=== PATIENT | male | born 1945 | race Caucasian/White ===

== ENCOUNTER 2025-06-15 02:51 | Observation (INO) | payer OTHER ==
[~2025-06-15] VITALS: Ht 175.3 cm; Wt 86.6 kg
[2025-06-15 03:13] LABS: BASOPHILS ABSOLUTE AUTO 0.04 K/mm3 (0.00-0.23); BASOPHILS PERCENT AUTO 0 % (0-2); EOSINOPHILS ABSOLUTE AUTO 0.07 K/mm3 (0.00-0.68); EOSINOPHILS PERCENT AUTO 1 % (0-6); Hematocrit 38.3 % (37.0-53.0); Hemoglobin 13.1 g/dL (13.5-17.5); IMMATURE GRAN ABSOLUTE AUTO 0.04 K/mm3 (0.00-0.10); IMMATURE GRAN PERCENT AUTO 0 % (0-1); LYMPHOCYTES ABSOLUTE AUTO 0.80 K/mm3 (0.84-5.20); LYMPHOCYTES PERCENT AUTO 8 % (21-46); MONOCYTES ABSOLUTE AUTO 1.02 K/mm3 (0.16-1.47); MONOCYTES PERCENT AUTO 10 % (4-13); Mean Corpuscular HGB Conc 34.2 g/dL (31.5-36.5); Mean Corpuscular Volume 92 fL (80-100); NEUTROPHILS ABSOLUTE AUTO 8.44 K/mm3 (1.96-9.15); NEUTROPHILS PERCENT AUTO 81 % (41-73); NRBC ABSOLUTE 0.00 K/mm3 (0.00-0.02); NRBC Auto 0.0 /100 WBC (0.0-0.2); Platelet Count 108 K/mm3 (150-400); RDW Coefficient Variation 14.8 % (11.7-14.2); RDW Standard Deviation 49.8 fL (35.1-46.3)
[2025-06-15 03:31] LABS: Alanine Aminotransfer (ALT/SGP 24.0 U/L (12-78); Albumin, Blood 2.6 g/dL (3.4-5.0); Albumin/Globulin Ratio 0.5 (0.8-1.8); Anion Gap 15.0 mmol/L (3-11); Aspartate Aminotrans (AST/SGOT 27.0 U/L (12-37); Bilirubin, Total 1.0 mg/dL (0.1-1.0); Blood Urea Nitrogen 20.0 mg/dL (8-24); CO2, Blood 21.0 mmol/L (21-32); Calcium, Blood 8.6 mg/dL (8.5-10.1); Chloride, Blood 100.0 mmol/L (98-108); Creatinine, Blood 1.52 mg/dL (0.60-1.20); Globulin, Blood 5.5 g/dL (2.2-4.0); Glucose, Blood 157.0 mg/dL (70-99); Potassium, Blood 3.6 mmol/L (3.5-5.5); Sodium, Blood 132.0 mmol/L (136-145); Total Protein, Blood 8.1 g/dL (6.4-8.2)
[2025-06-15] MEDS ORDERED: NS 1,000 ML IV SCH (04:00)
[2025-06-15] MEDS ORDERED: Enoxaparin 40 MG/0.4 ML SYR SC SCH (08:00)
[2025-06-15 09:35] VITALS: BP 148/82
[2025-06-15] MEDS ORDERED: OZEMPIC1 MG/0.72 SC (10:33)
[2025-06-15] MEDS ORDERED: LOSARTAN-HCTZ1 EACH PO (10:35)
[2025-06-15] MEDS ORDERED: CARV6.25 PO (10:35)
[2025-06-15] MEDS ORDERED: METF500C PO (10:36)
[2025-06-15] MEDS ORDERED: ROSUVASTATIN CA20 MG PO (10:36)
[2025-06-15] MEDS ORDERED: FISH OIL 1,0001 EA10 PO (10:38)
[2025-06-15] MEDS ORDERED: Aspir 8181 MG PO (10:38)
[2025-06-15] MEDS ORDERED: JARDIANCE25 MG PO (10:38)
[2025-06-15] MEDS ORDERED: VITAMIN D325 MC3 PO (10:39)
[2025-06-15] MEDS ORDERED: MULTIPLE VITAM1 EACH PO (10:40)
[2025-06-15] MEDS ORDERED: ASCO500 PO (10:41)
[2025-06-15] MEDS ORDERED: B-121000 MC7 PO (10:45)
[2025-06-15 12:24] VITALS: BP 124/74
[2025-06-15] MEDS ORDERED: Aminophylline 250MG / 10ML 10 ML Vial ONE (13:28)
[2025-06-15 17:18] VITALS: BP 122/65
[2025-06-15 19:15] VITALS: BP 116/62
--- NOTE | 2025-06-15 19:44 | NUR ---
ASSUMPTION OF CARE PT A&O X4, CALM, COOPERATIVE TO CARE. HR IN THE 90'S, SR. HE DENIES ANY CP/PRESSURE, NUMB/TINGLING, SBP STABLE. SPO2 >92% ON RA, HE DENIES ANY SOB. PT IND IN ROOM TO THE BATHROOM. PT HAD FIRST PORTION OF STRESS TEST TODAY 06/15, WILL BE NPO AT MIDNIGHT FOR SECOND PORTION. PT DENIES ANY QUESTIONS OR CONCERNS AT THIS TIME. CALL LIGHT IN REACH.
[2025-06-15] MEDS ORDERED: Insulin Human Lispro 100 Units/ML 3ML Syringe SC SCH (21:00)
[2025-06-15 23:51] VITALS: BP 115/72
[2025-06-16 03:12] VITALS: BP 124/71
--- NOTE | 2025-06-16 05:04 | NUR ---
SHIFT SUMMARY PT A&O X4, CALM, COOPERATIVE TO CARE. HR IN THE 90'S, SINUS RHYTHM. HE DENIES ANY CP/PRESSURE T/O NIGHT. SBP STABLE. SPO2 >92% ON RA, HE DENIES ANY SOB. PT HAS NOT HAD CAFFEINE OR CHOCOLATE SINCE 1899 AND HAS BEEN NPO SINCE MIDNIGHT FOR SECOND PORTION OF STRESS TEST TODAY 06/16. PT AMBULATED AROUND UNIT EARLY RHIS AM, TOLERATED WELL. NO ACUTE CHANGES T/O NIGHT. PT DENIES ANY QUESTIONS OR CONCERNS. CALL LIGHT IN REACH. WILL MONITOR PT AND REPORT TO ONCOMING RN.
[2025-06-16 06:27] LABS: BASOPHILS ABSOLUTE AUTO 0.03 K/mm3 (0.00-0.23); BASOPHILS PERCENT AUTO 0 % (0-2); EOSINOPHILS ABSOLUTE AUTO 0.15 K/mm3 (0.00-0.68); EOSINOPHILS PERCENT AUTO 2 % (0-6); Hematocrit 34.3 % (37.0-53.0); Hemoglobin 11.7 g/dL (13.5-17.5); IMMATURE GRAN ABSOLUTE AUTO 0.03 K/mm3 (0.00-0.10); IMMATURE GRAN PERCENT AUTO 0 % (0-1); LYMPHOCYTES ABSOLUTE AUTO 1.28 K/mm3 (0.84-5.20); LYMPHOCYTES PERCENT AUTO 15 % (21-46); MONOCYTES ABSOLUTE AUTO 1.06 K/mm3 (0.16-1.47); MONOCYTES PERCENT AUTO 12 % (4-13); Mean Corpuscular HGB Conc 34.1 g/dL (31.5-36.5); Mean Corpuscular Volume 94 fL (80-100); NEUTROPHILS ABSOLUTE AUTO 6.07 K/mm3 (1.96-9.15); NEUTROPHILS PERCENT AUTO 71 % (41-73); NRBC ABSOLUTE 0.00 K/mm3 (0.00-0.02); NRBC Auto 0.0 /100 WBC (0.0-0.2); Platelet Count 104 K/mm3 (150-400); RDW Coefficient Variation 14.9 % (11.7-14.2); RDW Standard Deviation 52.2 fL (35.1-46.3)
[2025-06-16 06:50] LABS: Alanine Aminotransfer (ALT/SGP 19.0 U/L (12-78); Albumin, Blood 2.4 g/dL (3.4-5.0); Albumin/Globulin Ratio 0.5 (0.8-1.8); Anion Gap 7.0 mmol/L (3-11); Aspartate Aminotrans (AST/SGOT 20.0 U/L (12-37); Bilirubin, Total 1.0 mg/dL (0.1-1.0); Blood Urea Nitrogen 24.0 mg/dL (8-24); CO2, Blood 27.0 mmol/L (21-32); Calcium, Blood 8.3 mg/dL (8.5-10.1); Chloride, Blood 99.0 mmol/L (98-108); Creatinine, Blood 1.65 mg/dL (0.60-1.20); Globulin, Blood 4.6 g/dL (2.2-4.0); Glucose, Blood 141.0 mg/dL (70-99); Potassium, Blood 2.9 mmol/L (3.5-5.5); Sodium, Blood 130.0 mmol/L (136-145); Total Protein, Blood 7.0 g/dL (6.4-8.2)
[2025-06-16] MEDS ORDERED: Potassium Chl 20MEQ/Water100ML 100 ML IV SCH (07:05)
[2025-06-16 07:19] LABS: Prostate Specific Antigen 1.960 ng/mL (0.000-4.000)
[2025-06-16 07:30] LABS: Carcinoembryonic Antigen 1.3 ng/mL (0.0-3.0)
[2025-06-16 07:31] VITALS: BP 141/70
[2025-06-16] MEDS ORDERED: Cholecalciferol 1000 Unit Tablet (=25MCG) PO SCH (09:00)
[2025-06-16] MEDS ORDERED: Colchicine 0.6 MG TAB PO SCH (09:00)
[2025-06-16 11:37] VITALS: BP 100/63
[2025-06-16] MEDS ORDERED: Insulin Human Lispro 100 Units/ML 3ML Syringe SC SCH ×2 (12:00)
[2025-06-16 12:57] LABS: Anion Gap 9.0 mmol/L (3-11); Blood Urea Nitrogen 28.0 mg/dL (8-24); CO2, Blood 27.0 mmol/L (21-32); Calcium, Blood 8.4 mg/dL (8.5-10.1); Chloride, Blood 99.0 mmol/L (98-108); Creatinine, Blood 1.67 mg/dL (0.60-1.20); Glucose, Blood 199.0 mg/dL (70-99); Potassium, Blood 3.4 mmol/L (3.5-5.5); Sodium, Blood 132.0 mmol/L (136-145)
[2025-06-16] MEDS ORDERED: NS 1,000 ML BAG IV ONE (13:20)
[2025-06-16] MEDS ORDERED: NS 1,000 ML IV SCH (13:35)
[2025-06-16 14:32] LABS: Influenza A/2009-H1 Not Detected (NOT DETECT); SARS-Cov-2 (COVID-19), BioFire Not Detected (NOT DETECT)
[2025-06-16] MEDS ORDERED: COLCHICINE0.6 MG PO (15:37)
[2025-06-16] MEDS ORDERED: SPIR25 PO (15:37)
[2025-06-16 16:02] VITALS: BP 111/63
--- NOTE | 2025-06-16 16:52 | NUR ---
PT IS A&Ox4 AND ABLE TO MAKE NEEDS KNOWN. HE IS ON RA W/O2 SATS > 92%. HE IS INDEPENDENT W/AMBULATION. STRESS TEST COMPLETED AND CT OF ABD/PELVIS COMPLETED TODAY. NO NEEDS OR CONCERNS NOTED @ THIS TIME. PT SITTING IN RECLINER IN ROOM. CALL LIGHT AND PERSONAL BELONGINGS IN REACH.
--- NOTE | 2025-06-16 17:11 | NUR ---
PT DISCHARGED HOME W/DAUGHTER AND ALL PERSONAL BELONGINGS.
[2025-06-16] MEDS ORDERED: Insulin Glargine-Yfgn 100 Unit/mL 3 ML SYR SC SCH (21:00)
[2025-06-19 10:40] LABS: ALPHA 1 GLOBULIN 0.41 g/dL (0.19-0.46); ALPHA 2 GLOBULIN 0.77 g/dL (0.48-1.05); BETA GLOBULIN 0.90 g/dL (0.48-1.10); GAMMA 1.70 g/dL (0.62-1.51)
[2025-06-21 16:38] LABS: ALBUMIN %,URINE 54.1 %; ALPHA-1 %,URINE 3.9 %; ALPHA-2 %,URINE 24.5 %; BETA GLOBULIN %,URINE 14.7 %; GAMMA GLOBULIN %,URINE 2.8 %; HOURS COLLECTED Random hr; PARAPROTEIN %,URINE 0.0 %
== END 2025-06-16 17:18 | disposition home or self-care (01) ==
LOC: ER 02:51 → PCU 02:52 → ERHOLD 02:52 → PCU 09:05
PROVIDERS: Emergency Medicine; Internal Medicine; ADMIT Internal Medicine
DX: R07.81 Pleurodynia (principal); I25.10 Atherosclerotic heart disease of native coronary artery without angina pectoris; I11.0 Hypertensive heart disease with heart failure; I50.9 Heart failure, unspecified; R10.12 Left upper quadrant pain; I31.9 Disease of pericardium, unspecified; E11.9 Type 2 diabetes mellitus without complications; K76.0 Fatty (change of) liver, not elsewhere classified; I25.2 Old myocardial infarction; Z87.891 Personal history of nicotine dependence; Z79.82 Long term (current) use of aspirin; Z79.84 Long term (current) use of oral hypoglycemic drugs; Z79.899 Other long term (current) drug therapy; Z95.5 Presence of coronary angioplasty implant and graft
CPT/HCPCS: 0202U; 36415; 71046; 71260; 74018; 74177; 78452; 80048; 80053; 82378; 82947; 83690; 83880; 84155; 84156; 84165; 84166; 84484; 85025; 85379; 86301; 86335; 93005; 93010; 93017; 93306; 96372; 96372-59; 96374; 96375; 99285-25; A9270; A9500; G0103; G0378; J0280; J0706; J1650; J1815; J2785; J3480; J7030; Q9967